=== PATIENT | female | born 1955 | race Caucasian/White ===

== ENCOUNTER 2024-09-22 08:10 | Outpatient (CLI) | payer MEDICARE, SELFPAY ==
--- NOTE | ~2024-09-22 | MM_ITS ---
EXAMINATION: MM screening tereso BI w nichole HISTORY: Screening TECHNIQUE: Craniocaudal and mediolateral oblique 3-D tomosynthesis images were obtained and synthetic 2-D images were generated. CAD analysis was submitted and interpreted. COMPARISON: No prior mammogram is available for comparison at this institution. BREAST PARENCHYMAL COMPOSITION: Not dense: There are scattered areas of fibroglandular density. FINDINGS: There is no evidence of suspicious mass, calcification, or architectural distortion to sugg est malignancy in either breast. There has been no suspicious interval change. IMPRESSION: 1. No mammographic evidence of malignancy. 2. Recommend routine screening mammography in one year. BI-RADS Category 1: Negative Reviewed, dictated and finalized at location B. [facility] [employer]
--- OUTSIDE RECORDS SUMMARY | 2024-09-22 08:18 | XMS_ITS | Clinical Summary ---
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 Gender Identity Not on file Sexual Orientation Not on file Plan of Treatment Health Maintenance Due Date Last Done Comments Colorectal Cancer Screening Colonoscopy (10 Years) 1955 Hepatitis C 1973 DTaP, Tdap and Td Vaccines ( 1 - Tdap) 1974 Mammogram Screening 1995 Zoster Vaccines (1 of 2) 2005 Dexa Scan (General) 02/27/2020 Pneumococcal Vaccine: 65+ Ye ars (1 of 1 - PCV) 02/27/2020 COVID-19 Vaccine (2023-2 5 season) 2024 Influenza Adult (#1) 2024 RSV Immunization or 60+ Years (1 - 1-dose 75+ series) 2030 Meningococcal B Vaccine Aged Out No l onger eligible based on patient's age to complete this topic Meningococcal Vaccine Aged Out No hesham tanika eligible based on patient's age to complete this topic RSV Immunizations Under 20 Months Aged Out No longer eligible based on patient's age to complete this topic
== END 2024-09-22 08:11 | disposition home or self-care (01) ==
PROVIDERS: PCP Family Medicine; Visit Provider Family Medicine
DX: Z12.31 Encounter for screening mammogram for malignant neoplasm of breast (principal)
CPT/HCPCS: 77063; 77067

== ENCOUNTER 2024-12-30 00:04 | Day surgery (SDC) | payer MEDICARE, SELFPAY ==
[2024-12-21 12:41] VITALS: BMI 27.5
[2024-12-30 09:30] VITALS: BP 91/67; PULSE 64; RESP 18; TEMP 36.2; O2SAT 100
[2024-12-30] MEDS: LACTATED RINGERS 1,000 ML 150 ML IV CONT (09:43)
--- NOTE | 2024-12-30 10:26 | P.PNAN_ITS ---
Anes - Initial Pre Proc Eval Procedure: Operation Date: 12/30/24 10:30 Proposed Procedures p Screening Colonoscopy - Rahul Puckett MD Date/Time: 12/30/24 10:26 Surgeon: Rahul Puckett MD Pre Op Diagnosis: screening colon Patient Data Age: 69 Gender: F Height: 1.65 m Weight: 66.7 kg Last Vital Signs Temp 97.1 F L 12/30/24 09:30 Pulse 64 12/30/24 09:30 Resp 18 12/30/24 09:30 BP 91/67 L 12/30/24 09:30 Pulse Ox 100 12/30/24 09:30 O2 Del Method Room Air 12/30/24 09:30 Allergies Allergy/AdvReac Type Severity Reaction Status Date / Time No Known Allergies Allergy Verified 12/30/24 09:29 Home Medications ?Medication ?Instructions ?Recorded ?Confirmed ?Type No Home Medications 12/21/24 12/21/24 History Patient hx anesthesia problems: none Family hx anesthesia problems: none Results Review: All pre-operative results and documents have been reviewed as part of the pre- operative evaluation. [facility] Social History Social History Smoking status: Never smoker Alcohol intake: never Substance use: never Substance use type: does not use Living arrangements: alone Spiritual care concerns: No Anes - Eval Final PreProcedure Day of Procedure 12/30/24 10:26 Patient weight: normal Heart: regular rate and rhythm Lungs: clear to auscultation Airway: Mallampati scale class II Neurological: alert and oriented Last oral intake: >/= 8 hours ASA classification: I Emergent: no Anesthetic plan: proceed Anesthesia type and monitoring: general GIVS and standard monitoring Results Review: All pre-operative results and documents have been reviewed as part of the pre- operative evaluation. Informed Consent: The patient's anesthetic plan and its attendant risks and benefits were discussed with the patient/family/POA. Questions were solicited and answers provided to the satisfaction of the patient/family/POA.
--- NOTE | 2024-12-30 10:37 | PM.IMHP ---
H&P: HPI History of Present Illness Date/Time: 12/30/24 10:37 Chief Complaint: Screening colonoscopy Narrative: This is the patient's first colonoscopy. There are no GI symptoms and there is no family history of colorectal cancer. Review of Systems Review of Systems: All systems reviewed & are unremarkable except as noted in HPI and below [facility] Social History Social History Smoking status: Never smoker Alcohol intake: never Substance use: never Substance use type: does not use Living arrangements: alone Spiritual care concerns: No Meds Home Medications and Allergies Home Medications ?Medication ?Instructions ?Recorded ?Confirmed ?Type No Home Medications 12/21/24 12/21/24 History Allergies Allergy/AdvReac Type Severity Reaction Status Date / Time No Known Allergies Allergy Verified 12/30/24 09:29 Vital Signs Vital Signs - 24 hr 12/30/24 09:30 Temperature 97.1 F L Pulse Rate 64 Respiratory Rate 18 Blood Pressure 91/67 L Pulse Oximetry 100 Oxygen Delivery Room Air Exam Const: General: cooperative and healthy appearing Resp: Effort & Inspection: normal respiratory effort and able to speak in complete sentences Auscultation: clear to auscultation bilaterally Cardio: Rate: regular rate Rhythm: regular rhythm GI: Inspection: normal to inspection GI Palp: No No hepatosplenomegaly present Auscultation: normal bowel sounds Rectal Exam: deferred Skin: General skin exam: normal color Psych: Appearance: grossly normal Mental Status: mental status grossly normal Assessment and Plan Assessment and plan (1) Encounter for screening colonoscopy: Code(s): Z12.11 - Encounter for screening for malignant neoplasm of colon Status: Acute Assessment and Plan: The patient is deemed a good candidate for the procedure. Consent signed. Will proceed.
[2024-12-30] MEDS: SIMETHICONE ORAL SUSPENSION 20 MG/0.3 ML 30 ML BOTTLE 0.6 ML IRRIGATION (11:00)
--- NOTE | 2024-12-30 11:08 | S_PTH ---
PATIENT: Imelda Cain LOC: [facility]#:[id number] AGE/SX: 69/F ROOM: RE12/30/[address]: Rahul Puckett MD : 1955 BED: DIS: 12/30/2024 SPEC #: [id number] RECD: 12/30/24 13:06 STATUS: [place] REQ #: [id number] SCOT: 12/30/24 11:[address]: Rahul Puckett DEPT: [facility] Surgical RECD BY: Jana Means ENTERED: 12/30/24 13:06 SP TYPE: Surgical OTHR DR: Herber Santo MD Tissues: A - Colon Polypectomy Procedures: Hematoxylin and Eosin Stain Gross and Microscopic Level 4
[2024-12-30 11:12] VITALS: BP 93/50; PULSE 54; RESP 18; O2SAT 100
[2024-12-30 11:22] VITALS: BP 96/53; PULSE 48; RESP 16; O2SAT 100
[2024-12-30 11:32] VITALS: BP 106/65; PULSE 51; RESP 20; O2SAT 99
== END 2024-12-30 11:48 | disposition home or self-care (01) ==
PROVIDERS: PCP Family Medicine; Referring Provider Family Medicine; Visit Provider Internal Medicine Gastroenterology
PROC: 0DJD8ZZ Inspection of Lower Intestinal Tract, Via Natural or Artificial Opening Endoscopic (ICD-10-PCS; CPT 45378; principal; 2024-12-30 10:30)
DX: Z12.11 Encounter for screening for malignant neoplasm of colon (principal); D12.0 Benign neoplasm of cecum
CPT/HCPCS: 45385; 88305; J2003; J2704; J7120